=== PATIENT | female | born 1970 | race Native Hawaiian/Other Pacific Islander ===

== ENCOUNTER 2021-01-15 21:20 | Emergency (ER) | payer OTHER ==
[~2021-01-15] VITALS: Ht 167.6 cm; Wt 93.2 kg
--- NOTE | 2021-01-15 23:24 | NUR ---
ALFREDO Kennedy aware that patient is covid neg. patient still sat 98% on RA.
[2021-01-15] MEDS ORDERED: METH4TAB3 PO (23:26)
[2021-01-15] MEDS ORDERED: BENZ-16 PO (23:26)
[2021-01-15] MEDS ORDERED: AMOX-422 PO (23:26)
[2021-01-15] MEDS ORDERED: ALBU6.7H9 INH (23:26)
[2021-01-16 00:06] VITALS: BP 118/91
== END 2021-01-16 00:07 | disposition home or self-care (01) ==
LOC: ER 21:21
DX: J40 Bronchitis, not specified as acute or chronic (principal); Z20.822 Contact with and (suspected) exposure to COVID-19; R09.89 Other specified symptoms and signs involving the circulatory and respiratory systems; R05.9 Cough, unspecified; R09.81 Nasal congestion; R06.02 Shortness of breath; J45.909 Unspecified asthma, uncomplicated; Z79.2 Long term (current) use of antibiotics; Z79.899 Other long term (current) drug therapy
CPT/HCPCS: 71045; 87635; 99284; C9803